=== PATIENT | female | born 1960 ===

== ENCOUNTER 2017-02-18 11:18 | Outpatient (CLI) | payer BC ==
--- NOTE | 2017-02-18 13:03 | Mammography Report ---
Bilateral mammogram: No previous studies available. CAD study utilized. Findings: Predominance adipose tissue bilaterally. Tubular asymmetry noted at the subareolar area right breast. Focal ill-defined 4 mm asymmetry in the posterior right breast. No microcalcification. Benign axillary nodes. Impression: Asymmetry subareolar right breast and inner posterior right breast. Comparison with previous studies is recommended. If previous studies are not available spot magnification and sonographic examination advised. BI-RADS CATEGORY: 0 = Needs additional imaging evaluation ACR BI-RADS MAMMOGRAPHIC CODES: 0 = Needs additional imaging evaluation; 1 = Negative; 2 = Benign; 3 = Probably benign; 4 = Suspicious; 5 = Malignant; 6 = Known biopsy-proven malignancy COMMENT: 1. Dense breast tissue, i.e., adenosis, fibrocystic changes, etc., may obscure an underlying neoplasm. 2. Approximately 10% of cancers are not detected with mammography. 3. A negative mammography report should not delay biopsy if a clinically suspicious mass is present. COMMENT: Patient follow-up letters are generated in [employer].
== END 2017-02-18 11:19 | disposition home or self-care (01) ==
LOC: SPVWC 11:18
PROVIDERS: ATTEND Internal Medicine
DX: Z12.31 Encounter for screening mammogram for malignant neoplasm of breast (principal)
CPT/HCPCS: 77067; G0202